=== PATIENT | male | born 1955 | race African-American/Black ===

== ENCOUNTER 2020-07-07 09:39 | Day surgery (SDC) | payer MEDICARE, BC ==
[2020-07-07] VITALS (14 sets, daily range): BP systolic 98–125; BP diastolic 60–88
[~2020-07-07] VITALS: Ht 170.2 cm; Wt 81.6 kg
[2020-07-07] MEDS ORDERED: LIDOCAINE HCL 1% 20ML VIAL (Pyxis) INJ ONE (10:07)
[2020-07-07] MEDS ORDERED: SODIUM BICARBONATE 4% (2.4MEQ) 5ML VIAL IV ONE (10:07)
[2020-07-07] MEDS ORDERED: FENTANYL CITRATE/PF 50MCG/ML 2ML VIAL ONE (10:07)
[2020-07-07] MEDS ORDERED: FENTANYL CITRATE/PF 50MCG/ML 2ML VIAL IV SCH (11:00)
[2020-07-08 07:24] VITALS: BP 107/77
[2020-07-08 07:27] VITALS: BP 107/77
== END 2020-07-07 14:40 | disposition home or self-care (01) ==
LOC: RAD 09:39
PROVIDERS: ATTEND Specialist
DX: R91.8 Other nonspecific abnormal finding of lung field (principal); Z79.899 Other long term (current) drug therapy; Z87.891 Personal history of nicotine dependence; Z79.82 Long term (current) use of aspirin; Z98.890 Other specified postprocedural states; Z20.822 Contact with and (suspected) exposure to COVID-19
CPT/HCPCS: 32408; 71045; 87426; 88305; J3010; J3490; 77012; 99152; 99153; G0500

== ENCOUNTER → 2020-07-07 | Outpatient (CLI) | payer MEDICARE, BC ==
[~2020-07-07] MED LIST: ASPI-1488; CLON0.2T; HYDR25TA; LOSA100T3; METO25TA3; MULTIVITAMIN; NITROGLYCERIN; OMEP40CA12; PRAS10TA6; SIMVASTATIN
== END | disposition home or self-care (01) ==
LOC: LAB 08:02
PROVIDERS: ATTEND Specialist
DX: Z20.822 Contact with and (suspected) exposure to COVID-19 (principal); R91.8 Other nonspecific abnormal finding of lung field
CPT/HCPCS: 87426